=== PATIENT | male | born 1940 | race Hispanic/Latino ===

== ENCOUNTER 2020-09-02 12:53 | Emergency (ER) | payer OTHER, MEDICARE ==
[~2020-09-02 12:53] MED LIST: OMEG-125 PO
[2020-09-02] MEDS ORDERED: FENTANYL CITRATE PF 50 MCG/1 ML 2ML VIAL ONE (13:07)
[2020-09-02 13:27] LABS: BASOPHILS % (AUTO) 0.6 % (0.0-5.0); EOSINOPHILS % (AUTO) 2.5 % (0.0-8.0); HEMATOCRIT 38.7 % (42-54); LYMPHOCYTES % (AUTO) 35.6 % (21.0-51.0); MEAN CORPUSCULAR HEMOGLOBIN 31.5 pg (27.0-33.0); MEAN CORPUSCULAR HGB CONC 34.6 g/dL (32.0-36.0); MEAN CORPUSCULAR VOLUME 91.1 fL (79-99); MONOCYTES % (AUTO) 11.8 % (3.0-13.0); NEUTROPHILS % (AUTO) 49.3 % (40.0-77.0); PLATELET COUNT (AUTO) 213 K/uL (130-400); RED BLOOD CELL COUNT(AUTO) 4.25 MIL/uL (4.50-6.20); RED CELL DISTRIBUTION WIDTH 14.6 % (11.0-15.5); WHITE BLOOD COUNT (AUTO) 6.3 K/uL (4.8-10.8)
[2020-09-02 13:44] LABS: ALBUMIN 3.4 g/dL (3.5-5.0); BILIRUBIN,TOTAL 0.5 mg/dL (0.2-1.0); CREATININE 0.8 mg/dL (0.5-1.5); POTASSIUM 3.7 mmol/L (3.5-5.1); TOTAL PROTEIN, SERUM 7.5 g/dL (6.0-8.3)
== END 2020-09-02 14:07 | disposition home or self-care (01) ==
LOC: EDH 12:53
DX: B02.29 Other postherpetic nervous system involvement (principal); R07.89 Other chest pain
CPT/HCPCS: 36415; 71045; 80053; 84484; 85025; 93005; 96372 ×2; 99283; 99285; J3010 ×2

== ENCOUNTER 2020-09-02 18:28 | Emergency (ER) | payer OTHER, MEDICARE ==
[2020-09-02] MEDS ORDERED: FENTANYL CITRATE PF 50 MCG/1 ML 2ML VIAL ONE (18:51)
[2020-09-02] MEDS ORDERED: FENTANYL 25 MCG/HR PATCH TD ONE (19:46)
== END 2020-09-02 19:51 | disposition home or self-care (01) ==
LOC: EDH 18:28
DX: B02.29 Other postherpetic nervous system involvement (principal); Z72.0 Tobacco use
CPT/HCPCS: 96372; 99283; J3010

== ENCOUNTER 2020-09-12 14:05 | Emergency (ER) | payer OTHER, MEDICARE ==
[2020-09-12] MEDS ORDERED: FENTANYL 25 MCG/HR PATCH TD ONE (16:09)
[2020-09-12] MEDS ORDERED: FENTANYL CITRATE PF 50 MCG/1 ML 2ML VIAL ONE (16:10)
[2020-09-12] MEDS ORDERED: FENTANYL 50 MCG/HR PATCH TD ONE (16:24)
== END 2020-09-12 16:32 | disposition home or self-care (01) ==
LOC: EDH 14:05
DX: B02.29 Other postherpetic nervous system involvement (principal); Z79.899 Other long term (current) drug therapy
CPT/HCPCS: 96372; 99283; J3010